=== PATIENT | male | born 1965 | race Caucasian/White ===

== ENCOUNTER 2017-01-27 18:18 | Emergency (ER) | payer BC ==
--- NOTE | 2017-01-27 18:57 | UC ---
Skin Complaint HPI - HPI Summary HPI Summary: 51 YEAR OLD MALE PRESENTS WITH COMPLAINS OF A SPLINTER IN HIS RIGHT LITTLE FINGER - History of Current Complaint Chief Complaint: UCForeignBody Time Seen by Provider: 01/27/17 18:56 Stated Complaint: SPLINTER EMBEDDED UNDER FINGER NAIL Hx Obtained From: Patient Onset/Duration: Sudden Onset Skin Exposure Onset/Duration: Hours Ago Timing: Constant Onset Severity: Moderate Current Severity: Moderate Pain Scale Used: 0-10 Numeric - 7 - Allergy/Home Medications Allergies/Adverse Reactions: Allergies Allergy/AdvReac Type Severity Reaction Status Date / Time Tetracycline Allergy ITCH Verified 01/27/17 18:54 Home Medications: Home Medications Omeprazole [Prilosec] 20 mg PO DAILY 01/27/17 [History Confirmed 01/27/17] Review of Systems Constitutional: Negative Skin: Bruising, Other - SPLINTER UNDER NAIL OF RIGHT 5TH LITTLE FINGER Eyes: Negative ENT: Negative Respiratory: Negative Cardiovascular: Negative Gastrointestinal: Negative Genitourinary: Negative Motor: Negative Neurovascular: Negative Musculoskeletal: Negative Neurological: Negative Psychological: Negative All Other Systems Reviewed And Are Negative: Yes PMH/Surg Hx/FS Hx/Imm Hx Previously Healthy: Yes - Surgical History Surgical History: None - Family History Known Family History: Positive: None - Social History Alcohol Use: Occasionally Substance Use Type: None Smoking Status (MU): Never Smoked Tobacco - Immunization History Most Recent Influenza Vaccination: fall 2016 Physical Exam Triage Information Reviewed: Yes Vital Signs: Initial Vital Signs Temp 36.8 C 01/27/17 18:50 Pulse 76 01/27/17 18:50 Resp 16 01/27/17 18:50 BP 130/68 01/27/17 18:50 Pulse Ox 98 01/27/17 18:50 Vital Signs Reviewed: Yes Eye Exam: Normal ENT Exam: Normal Dental Exam: Normal Neck exam: Normal Neck: Positive: 1 Respiratory Exam: Normal Cardiovascular Exam: Normal Abdominal Exam: Normal Musculoskeletal Exam: Normal Neurological Exam: Normal Psychological Exam: Normal Skin: Positive: Other - SPLINTER UNDER NAIL OF RIGHT 5TH FINGER Course/Dx - Diagnoses Provider Diagnoses: SPLINTER UNDER NAIL OF RIGHT 5TH FINGER Discharge - Discharge Plan Condition: Stable Disposition: HOME Prescriptions: Sulfamethox/Trimethoprim DS* [Bactrim DS 800/160 TAB*] 1 tab PO BID #14 tab Patient Education Materials: Splint Care (ED) Referrals: Eugene Allen MD [Medical Doctor] -
[2017-01-27] MEDS ORDERED: Lidocaine 1% MPF* 2 ML VIAL INJ ONE ×3 (18:59→19:49)
[2017-01-27] MEDS ORDERED: Acetaminophen TAB* 325 MG PO ONE (18:59)
--- NOTE | 2017-01-27 19:49 | RAD ---
INDICATION: Splinter to right small finger TECHNIQUE: 3 views of the right small finger were obtained. FINDINGS: The bones are normal alignment. Joint spaces appear maintained. No fracture is seen. No foreign body is visualized. IMPRESSION: NORMAL RIGHT SMALL FINGER RADIOGRAPH.
[2017-01-27] MEDS ORDERED: Lidocaine 1% MPF* 2 ML VIAL ONE (19:50)
[2017-01-27] MEDS ORDERED: Gelfoam 12-7 ADSORBABL SPONGE* 1 EA SPONGE ONE (20:04)
[2017-01-27] MEDS ORDERED: Sulfamethox/Trimethoprim DS 800/160* TAB PO ONE (20:11)
[2017-01-27] MEDS ORDERED: Tetan/Diph/Pertus SYR(Tdap)* 0.5 ML SYR(BOOSTRIX) use SYR IM ONE (20:17)
[2017-01-27] MEDS ORDERED: Gelfoam 12-7 ADSORBABL SPONGE* 1 EA SPONGE TOPICAL ONE (20:18)
[2017-01-27 20:38] VITALS: BP 116/74
== END 2017-01-27 20:28 | disposition home or self-care (01) ==
LOC: UCEAST 18:18
DX: S60.456A Superficial foreign body of right little finger, initial encounter (principal); X58.XXXA Exposure to other specified factors, initial encounter; Y92.9 Unspecified place or not applicable; Z88.3 Allergy status to other anti-infective agents
CPT/HCPCS: 11765; 73140; 90471; 90715; 99212; A9270-GY; G0463

== ENCOUNTER 2018-11-27 09:44 | Emergency (ER) | payer OTHER ==
[2018-11-27 10:42] VITALS: BP 119/70
[2018-11-27] MEDS ORDERED: Triamcinolone Acetonide* 40 MG/ML 1 ML VIAL IM ONE (11:03)
--- NOTE | 2018-11-27 11:12 | UC ---
Skin Complaint HPI - HPI Summary HPI Summary: 53 yo male with pruritic rash that started after weedeating a ditch spreading - History of Current Complaint Chief Complaint: UCRash Time Seen by Provider: 11/27/18 10:25 Stated Complaint: SKIN ISSUE Hx Obtained From: Patient Onset/Duration: Gradual Onset, Lasting Hours Timing: Constant Onset Severity: Mild Current Severity: Moderate Pain Intensity: 2 Pain Scale Used: 0-10 Numeric Location: Other - face/arms/legs Character: Pruritus, Raised Aggravating Factor(s): Nothing Alleviating Factor(s): Cold Compresses Associated Signs & Symptoms: Positive: Rash - Allergy/Home Medications Allergies/Adverse Reactions: Allergies Allergy/AdvReac Type Severity Reaction Status Date / Time tetracycline Allergy Itching Verified 11/27/18 10:42 PMH/Surg Hx/FS Hx/Imm Hx Previously Healthy: Yes - Surgical History Surgical History: None - Family History Known Family History: Positive: Hypertension, Non-Contributory - Social History Alcohol Use: Occasionally Substance Use Type: None Smoking Status (MU): Never Smoked Tobacco - Immunization History Most Recent Influenza Vaccination: fall 2016 Review of Systems All Other Systems Reviewed And Are Negative: Yes Constitutional: Positive: Negative Skin: Positive: Rash Eyes: Positive: Negative ENT: Positive: Negative Respiratory: Positive: Negative Cardiovascular: Positive: Negative Gastrointestinal: Positive: Negative Genitourinary: Positive: Negative Motor: Positive: Negative Neurovascular: Positive: Negative Musculoskeletal: Positive: Negative Neurological: Positive: Negative Psychological: Positive: Negative Physical Exam Triage Information Reviewed: Yes Appearance: Well-Appearing, No Pain Distress, Well-Nourished Vital Signs: Initial Vital Signs Temp 98 F 11/27/18 10:34 Pulse 70 11/27/18 10:34 Resp 17 11/27/18 10:34 BP 119/70 11/27/18 10:34 Pulse Ox 100 11/27/18 10:34 Vital Signs Reviewed: Yes Eyes: Positive: Conjunctiva Clear ENT: Positive: Hearing grossly normal. Negative: Nasal congestion, Nasal drainage, Trismus, Muffled voice, Hoarse voice Neck: Positive: Supple, Nontender, No Lymphadenopathy Respiratory: Positive: Lungs clear, Normal breath sounds, No respiratory distress Cardiovascular: Positive: RRR, No Murmur Musculoskeletal: Positive: ROM Intact, No Edema Neurological: Positive: Alert Psychological Exam: Normal Skin Exam: Other - extensive rash face/ears arms/legs c/w contact dermatitis Course/Dx - Diagnoses Provider Diagnosis: Contact dermatitis Discharge - Sign-Out/Discharge Documenting (check all that apply): Patient Departure All imaging exams completed and their final reports reviewed: No Studies - Discharge Plan Condition: Stable Disposition: HOME Patient Education Materials: Contact Dermatitis (ED) Referrals: Andrew Martin MD [Primary Care Provider] - 5 Days (no not improving) Additional Instructions: I suspect poison LAUREN you may take benadryl 25 mg 2 pills every 6 hours as needed for itching cool compresses with epsom salts - Billing Disposition and Condition Condition: STABLE Disposition: Home
== END 2018-11-27 11:32 | disposition home or self-care (01) ==
LOC: UCEAST 09:44
DX: L25.9 Unspecified contact dermatitis, unspecified cause (principal)
CPT/HCPCS: 96372; 99211; G0463; J3301

== ENCOUNTER 2019-06-03 09:42 | Emergency (ER) | payer BC, OTHER ==
--- OUTSIDE RECORDS SUMMARY | 2019-06-03 11:12 | XMS REPORT | Continuity of Care Document ---
:1965 External Reference #:[id number] Author Name Sanjana Jacobsen DO (transmitted by agent of provider Smith Martin) Address [address] [place] [id number] Problems Active Problems Provider Date Chronic kidney disease Onset: 03/10/2017 Insomnia Onset: 01/16/2014 Chronic sinusitis Onset: 03/21/2007 Inactive Problems Contact dermatitis due to plants, except food Onset: 12/02/2018 Inactive: 12/02/2018 Depressive disorder Onset: 11/14/2018 Inactive: 11/14/2018 Renal failure syndrome Onset: 11/14/2018 Inactive: 11/14/2018 Adult health examination Onset: 11/14/2018 Inactive: 11/14/2018 Body mass index 25-29 - overweight Onset: 11/14/2018 Inactive: 11/14/2018 Social History Type Date Description Comments Sex Unknown Allergies, Adverse Reactions, Alerts Active Allergies Reaction Severity Comments Date Tetracycline itchy hands Mild 12/30/2018 Medications Active Medications SIG Qnty Indications Ordering Provider Date Acidophilus Probiotic 1 tab by mouth Sanjana Jacobsen, 04/03/2019 Blend every day DO Capsules Omeprazole take 1 capsule 90caps Andrew Martin MD 07/11/2018 20mg by mouth once Capsules DR daily History Medications Clotrimazole/Betamethasone 1 apply to 30gm Z68.28 Amairani Sood 03/03/2019 - Dipropionate affected area [employer] CL[employer] 04/02/2019 1-0.05% Cream twice a day Fluoxetine HCL Oral; Take 3 270caps Unknown 12/20/2018 - 20mg Capsules Capsules By 04/02/2019 Mouth Every Day Fluoxetine HCL Oral; Take 3 270caps Unknown 12/20/2018 - 20mg Capsules Capsules By 03/27/2019 Mouth Every Day Prednisone Oral 20tabs Unknown 12/02/2018 - 20mg Tablets 04/02/2019 Fluoxetine HCL 1 daily 30tabs Unknown 11/14/2018 - 10mg Tablets Oral; Take 04/02/2019 10mg plus 20mg x 2 caps = 50mg a day Immunizations CPT Code Status Date Vaccine Lot # [id number] Given 03/03/2019 Flu < 65 years [id number] 94862 Given 04/21/2018 Prevnar 13 42078 Given 02/28/2018 Influenza Virus Vaccine, Quadrivalent, Split, Im Use 0.25ML 79564 Given 02/28/2018 Influenza Virus Vaccine, Quadrivalent, Split, Im Use 0.25ML 50753 Given 02/28/2018 Influenza Virus Vaccine, Quadrivalent, Split, Im Use 0.25ML 67317 Given 02/28/2018 Flu < 65 years 52557 Given 02/28/2018 Influenza Virus Vaccine, Quadrivalent, Split, Preservative Free 41722 Given 02/28/2018 Flumist 08034 Given 02/28/2018 Flu High Dose 90859 Given 02/28/2018 Influenza Virus Vaccine, Split, Preserv Free, Intradermal Use 24383 Given 01/23/2017 Tdap - Boostrix/Adacel 00345 Given 01/23/2017 Tdap - Boostrix/Adacel 67610 Given 01/23/2017 Tdap - Boostrix/Adacel 10665 Given 12/30/2016 Influenza Virus Vaccine, Split, Preserv Free, Intradermal Use 04677 Given 12/30/2016 Flu High Dose 99418 Given 12/30/2016 Flumist 67325 Given 12/30/2016 Influenza Virus Vaccine, Quadrivalent, Split, Preservative Free 00281 Given 12/30/2016 Flu < 65 years 88715 Given 12/30/2016 Influenza Virus Vaccine, Quadrivalent, Split Virus, Im Use 0.5ML 39717 Given 01/03/2016 Influenza Virus Vaccine, Quadrivalent, Split, Im Use 0.25ML 43023 Given 01/03/2016 Influenza Virus Vaccine, Quadrivalent, Split, Im Use 0.25ML 09444 Given 01/03/2016 Influenza Virus Vaccine, Quadrivalent, Split, Im Use 0.25ML 59096 Given 01/03/2016 Flu < 65 years 74325 Given 01/03/2016 Influenza Virus Vaccine, Quadrivalent, Split, Preservative Free 99194 Given 01/03/2016 Flumist 50391 Given 01/03/2016 Flu High Dose 59339 Given 02/27/2015 Flu High Dose 76968 Given 02/27/2015 Flumist 97136 Given 02/27/2015 Influenza Virus Vaccine, Quadrivalent, Split, Preservative Free 39258 Given 02/27/2015 Flu < 65 years 66292 Given 02/27/2015 Influenza Virus Vaccine, Quadrivalent, Split Virus, Im Use 0.5ML 04233 Given 01/16/2014 Influenza Virus Vaccine, Quadrivalent, Split Virus, Im Use 0.5ML 38433 Given 01/16/2014 Flu < 65 years 33998 Given 01/16/2014 Influenza Virus Vaccine, Quadrivalent, Split, Preservative Free 93358 Given 01/16/2014 Flumist 65634 Given 01/16/2014 Flu High Dose 90723 Given 02/01/2013 Flu High Dose 07145 Given 02/01/2013 Flumist 75323 Given 02/01/2013 Influenza Virus Vaccine, Quadrivalent, Split, Preservative Free 70503 Given 02/01/2013 Flu < 65 years 23377 Given 02/01/2013 Influenza Virus Vaccine, Quadrivalent, Split, Im Use 0.25ML 46625 Given 02/01/2013 Influenza Virus Vaccine, Quadrivalent, Split, Im Use 0.25ML 68286 Given 02/01/2013 Influenza Virus Vaccine, Quadrivalent, Split, Im Use 0.25ML 18202 Given 02/22/2012 Influenza Virus Vaccine Split Virus Intramuscular Use 0.5ML 37815 Given 02/22/2012 Flu High Dose 10246 Given 02/22/2012 Flumist 18755 Given 02/22/2012 Influenza Virus Vaccine, Quadrivalent, Split, Preservative Free 15497 Given 02/22/2012 Flu < 65 years 06714 Given 02/22/2012 Influenza Virus Vaccine, Quadrivalent, Split, Im Use 0.25ML 69151 Given 02/22/2012 Influenza Virus Vaccine, Quadrivalent, Split, Im Use 0.25ML 85920 Given 02/22/2012 Influenza Virus Vaccine, Quadrivalent, Split, Im Use 0.25ML 63477 Given 01/07/2011 Influenza Virus Vaccine, Quadrivalent, Split, Im Use 0.25ML 95139 Given 01/07/2011 Influenza Virus Vaccine, Quadrivalent, Split, Im Use 0.25ML 15348 Given 01/07/2011 Influenza Virus Vaccine Split Virus Intramuscular Use 0.5ML 15025 Given 01/28/2010 Influenza Virus Vaccine, Quadrivalent, Split, Im Use 0.25ML 26387 Given 01/28/2010 Influenza Virus Vaccine Split Virus Intramuscular Use 0.5ML Vital Signs Date Vital Result Comment 04/03/2019 4:05pm BP Systolic 108 mmHg BP Diastolic 68 mmHg Heart Rate 60 /min Body Temperature 97.5 F O2 % BldC Oximetry 99 % 03/03/2019 12:02pm BP Systolic 110 mmHg BP Diastolic 60 mmHg Height 73 inches 6'1" Weight 215.00 lb Heart Rate 59 /min Body Temperature 97.4 F O2 % BldC Oximetry 98 % BMI (Body Mass Index) 28.4 kg/m2 Results Test Acquired Date Facility Test Result H/L Range Note Comp Metabolic 04/04/2019 [facility] Sodium 140 mmol/L Normal 135-145 [address] [place] [address] [phone] Potassium 3.9 mmol/L Normal 3.5-5.0 Chloride 105 mmol/L Normal 101-111 Co2 Carbon Dioxide 31 mmol/L Normal 22-32 Anion Gap 4 mmol/L Normal 2-11 Glucose 102 mg/dL High 70-100 Blood Urea Nitrogen 11 mg/dL Normal 6-24 Creatinine 1.17 mg/dL Normal 0.67-1.17 BUN/Creatinine Ratio 9.4 Normal 8-20 Calcium 8.6 mg/dL Normal 8.6-10.3 Total Protein 6.6 g/dL Normal 6.4-8.9 Albumin 4.0 g/dL Normal 3.2-5.2 Globulin 2.6 g/dL Normal 2-4 Albumin/Globulin Ratio 1.5 Normal 1-3 Total Bilirubin 0.60 mg/dL Normal 0.2-1.0 Alkaline Phosphatase 72 U/L Normal 34-104 Alt 28 U/L Normal 7-52 Ast 18 U/L Normal 13-39 Egfr Non- 64.7 >60 Egfr 78.3 >60 1 CBC Auto 04/04/2019 [facility] White Blood 6.2 10^3/uL Normal 3.5-10.[address] Count [place], [place] [id number] [phone] Red Blood Count 5.28 10^6/uL Normal 4.18-5.48 Hemoglobin 15.0 g/dL Normal 14.0-18.0 Hematocrit 44 % Normal 42-52 Mean Corpuscular Volume 84 fL Normal 80-94 Mean Corpuscular Hemoglobin 29 pg Normal 27-31 Mean Corpuscular HGB Conc 34 g/dL Normal 31-36 Red Cell Distribution Width 14 % Normal 10-15 Platelet Count 155 10^3/uL Normal 150-450 Mean Platelet Volume 9.1 fL Normal 7.4-10.4 Abs Neutrophils 3.8 10^3/uL Normal 1.5-7.7 Abs Lymphocytes 1.4 10^3/uL Normal 1.0-4.8 Abs Monocytes 0.7 10^3/uL Normal 0-0.8 Abs Eosinophils 0.3 10^3/uL Normal 0-0.6 Abs Basophils 0.1 10^3/uL Normal 0-0.2 Abs Nucleated RBC 0.0 10^3/uL Granulocyte % 61.6 % Lymphocyte % 21.8 % Monocyte % 11.2 % Eosinophil % 4.4 % Basophil % 1.0 % Nucleated Red Blood Cells % 0.4 Laboratory 04/04/2019 [facility] TSH (Thyroid 0.70 Normal 0.34 -5.60 test finding [address] Stim Horm) mcIU/[place] [address] [phone] Free T4 (Free Thyroxine) 0.91 ng/dL Normal 0.61-1.12 [facility] 11/14/2018 N2N/CCD Import [facility] 11/14/18 HIV Test Offered 11/14/2018 N2N/CCD Import HIV Test Offered - not indicated Health Care Proxy 11/14/2018 N2N/CCD Import Health Care Proxy Disc, form at home Creat, Ur Random 11/14/2018 N2N/CCD Import Creat, Ur Random 300 _ Microalb/CR Ratio 11/14/2018 N2N/CCD Import Microalb/CR Ratio <30 Microalbumin, Ur 11/14/2018 N2N/CCD Import Microalbumin, Ur 30 _ Microalbumin 11/14/2018 N2N/CCD Import Microalbumin Normal Interpretation Interpretation 1 Because ethnic data is not always readily available, this report includes an eGFR for both -Americans and non- Americans. The National Kidney Disease Education Program (NKDEP) does not endorse the use of the MDRD equation for patients that are not between the ages of 18 and 70, are , have extremes of body size, muscle mass, or nutritional status, or are non- or non-. According to the National Kidney Foundation, irrespective of diagnosis, the stage of the disease is based on the level of kidney function: Stage Description GFR(mL/min/1.73 m(2)) 1 Kidney damage with normal or decreased GFR 90 2 Kidney damage with mild decrease in GFR 60-89 3 Moderate decrease in GFR 30-59 4 Severe decrease in GFR 15-29 5 Kidney failure <15 (or dialysis) Procedures Date Code Description Status 11/14/2018 88226 Brief Emotional/Behav Assessment W/ Scoring Doc Per Completed Standard Inst Medical Devices Description No Information Available Encounters Type Date Location Provider Dx Diagnosis Office Visit 04/03/2019 4:00p [facility] Main Sanjana Jacobsen, DO R53.83 Other fatigue R21 Rash and other nonspecific skin eruption R94.5 Abnormal results of liver function studies R94.6 Abnormal results of thyroid function studies Office Visit 03/03/2019 12:00p [facility] Main JYOTI Conde B35.4 Tinea corporis Z23 Encounter for immunization Z68.28 Body mass index (BMI) 28.0-28.9, adult Assessments Date Code Description Provider 04/03/2019 R53.83 Other fatigue Sanjana Jacobsen, DO 04/03/2019 R21 Rash and other nonspecific skin eruption Sanjana Jacobsen, DO 04/03/2019 R94.5 Abnormal results of liver function studies Sanjana Jacobsen , DO 04/03/2019 R94.6 Abnormal results of thyroid function studies Sanjana Jacobsen DO 03/03/2019 B35.4 Tinea corporis JYOTI Conde 03/03/2019 Z23 Encounter for immunization JYOTI Conde 03/03/2019 Z68.28 Body mass index (BMI) 28.0-28.9, adult JYOTI Conde Plan of Treatment 04/03/2019 - Sanjana Karnow, DOR53.83 Other fatigueComments:Due for labs to check his renal function anyway and has had now over one month of fatigue/ lethargyWill rule out underlying cause if possible by getting some basic lab workR21 Rash and other nonspecific skin eruptionComments:Looks inflammatory to me or fungalCould be an odd presentation of pityriasis Will discuss case with derm and get back to ptEither way, no concerning features to the rash bwrchC03.5 Abnormal results of liver function studiesComments:hx of elevated ALT - repeat beizinjM38.6 Abnormal results of thyroid function studiesComments: Last TSH was low, therefore ordered further testingAllNew Medication: Acidophilus Probiotic Blend - 1 tab by mouth every dayComments:will look into where can get water tested Functional Status Description No Information Available Mental Status Description No Information Available Referrals Description No Information Available
--- OUTSIDE RECORDS SUMMARY | 2019-06-03 11:12 | XMS REPORT | Continuity of Care Document ---
:1965 External Reference #:[id number] Author Name Andrew Martin MD Address [address] [place] [address] Problems Active Problems Provider Date Chronic kidney disease Onset: 03/10/2017 Insomnia Onset: 01/16/2014 Chronic sinusitis Onset: 03/21/2007 Inactive Problems Contact dermatitis due to plants, except food Onset: 12/02/2018 Inactive: 12/02/2018 Social History Type Date Description Comments Sex Unknown Tobacco Use Start: Unknown Patient has never smoked Smoking Status Reviewed: 05/23/19 Patient has never smoked Allergies, Adverse Reactions, Alerts Active Allergies Reaction Severity Comments Date Tetracycline itchy hands Mild 12/30/2018 Medications Active Medications SIG Qnty Indications Ordering Provider Date Acidophilus Probiotic 1 tab by mouth Sanjana Jacobsen, 04/03/2019 Blend every day DO Capsules Omeprazole take 1 capsule 90caps Andrew Martin MD 07/11/2018 20mg by mouth once Capsules DR daily History Medications Clotrimazole/Betamethasone 1 apply to 30gm Z68.28 Amairani Sood, 03/03/2019 - 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 1-0.05% Cream twice a day Fluoxetine HCL Oral; Take 3 270caps Unknown 12/20/2018 - 20mg Capsules Capsules By 04/02/2019 Mouth Every Day Fluoxetine HCL Oral; Take 3 270caps Unknown 12/20/2018 - 20mg Capsules Capsules By 03/27/2019 Mouth Every Day Prednisone Oral 20tabs Unknown 12/02/2018 - 20mg Tablets 04/02/2019 Immunizations CPT Code Status Date Vaccine Lot # [id number] Given 05/23/2019 Shingrix - Shingles vaccine, Herpes Zoster [id number] 13265 Given 03/03/2019 Flu < 65 years [id number] 38044 Given 04/21/2018 Prevnar 13 69937 Given 02/28/2018 Flu < 65 years 92550 Given 01/23/2017 Tdap - Boostrix/Adacel 70910 Given 12/30/2016 Flu < 65 years Vital Signs Date Vital Result Comment 05/23/2019 10:34am BP Systolic 110 mmHg BP Diastolic 74 mmHg Height 73 inches 6'1" Weight 220.00 lb with equipement in pockets Heart Rate 62 /min Body Temperature 98.2 F O2 % BldC Oximetry 99 % BMI (Body Mass Index) 29.0 kg/m2 04/03/2019 4:05pm BP Systolic 108 mmHg BP Diastolic 68 mmHg Heart Rate 60 /min Body Temperature 97.5 F O2 % BldC Oximetry 99 % Results Test Acquired Date Facility Test Result H/L Range Note Comp Metabolic 04/04/2019 [facility] Sodium 140 mmol/L Normal 135-[address] [place] [address] [phone] Potassium 3.9 mmol/L Normal 3.5-5.0 Chloride 105 [...] Egfr 78.3 >60 1 CBC Auto 04/04/2019 [facility] White Blood 6.2 10^3/uL Normal 3.5-10.[address] [place] [address] [phone] Red Blood Count 5.28 10^6/uL Normal 4.18-5.48 [...] Red Blood Cells % 0.4 Laboratory 04/04/2019 [facility] TSH (Thyroid 0.70 Normal 0.34 -5.60 test finding [address] Stim Horm) mcIU/[place] [address] [phone] Free T4 (Free Thyroxine) 0.91 ng/dL Normal 0.61-1.12 1 Because ethnic data is not always [...] 5 Kidney failure <15 (or dialysis) Procedures Description No Information Available Medical Devices Description No Information Available Encounters Type Date Location Provider Dx Diagnosis Office Visit 05/23/2019 [facility] Ganesh Martin MD F43.29 Adjustment disorder 10:30a with other symptoms Office Visit 04/03/2019 [facility] Sanjana Jacobsen, DO R53.83 Other fatigue 4:00p R21 Rash and other nonspecific skin eruption R94.5 Abnormal results of liver function studies R94.6 Abnormal results of thyroid function studies Office Visit 03/03/2019 12:00p [facility] JYOTI Ya B35.4 Tinea corporis Z23 Encounter for immunization Z68.28 Body mass index (BMI) 28.0-28.9, adult Assessments Date Code Description Provider 05/23/2019 F43.29 Adjustment disorder with other symptoms Andrew Martin MD 04/03/2019 R53.83 Other fatigue Sanjanaan Jacobsen, DO 04/03/2019 R21 Rash and other nonspecific skin eruption Sanjana Karli, DO 04/03/2019 R94.5 Abnormal results of liver function studies Sanjana Ann-Marie , DO 04/03/2019 R94.6 Abnormal results of thyroid function studies Sanjana Jacobsen, DO 03/03/2019 B35.4 Tinea corporis JYOTI Conde 03/03/2019 Z23 Encounter for immunization JYOTI Conde 03/03/2019 Z68.28 Body mass index (BMI) 28.0-28.9, adult JYOTI Conde Plan of Treatment Future Appointment(s):05/29/2019 2:45 pm - Andrew Martin MD at [facility]2019 - Andrew Martin MDF43.29 Adjustment disorder with other symptoms Functional Status Description No Information Available Mental Status Description No Information Available Referrals Description No Information Available
[2019-06-03 11:19] VITALS: BP 115/73
--- NOTE | 2019-06-03 11:33 | UC ---
Eye Complaint HPI - HPI Summary HPI Summary: 54 y/o male presents to the urgent care c/o left eye redness, yellowish crusting discharge and mild discomfort since 06/01/2019. Pt reports he has been w/ URI symptoms, nasal discharge yellowish for the past 4 days, but not fever or cough. He has been using OTC medication to alleviate symptoms. Pt denies fever, photophobia, blurred vision, eye pain, dizziness, SOB, chest pain, abdominal pain, N/V/D. - History of Current Complaint Chief Complaint: UCEye Stated Complaint: EYE COMPLAINT Time Seen by Provider: 06/03/19 11:28 Hx Obtained From: Patient Onset/Duration: Gradual Onset, Lasting Days - 2 days, Still Present, Worse Since - today w/ yellowish discharge Timing: Constant Severity Initially: Mild Severity Currently: Moderate Pain Intensity: 1 - eye discomfort Pain Scale Used: 0-10 Numeric Location of Injury: Conjunctiva - left eye redness Character: Foreign Body Sensation Aggravating Factor(s): Blinking Alleviating Factor(s): Nothing Associated Signs And Symptoms: Positive: Drainage (Purulent) - yellowish and crusting left eye. Negative: Photophobia, Fever, Swelling - Risk Factors Penetrating Injury Risk Factor: Negative Globe Rupture Risk Factors: Negative Acute Glaucoma Risk Factors: Negative Optic Artery Occlusion Risk Factors: Negative - Allergies/Home Medications Allergies/Adverse Reactions: Allergies Allergy/AdvReac Type Severity Reaction Status Date / Time tetracycline Allergy Itching Verified 06/03/19 11:19 PMH/Surg Hx/FS Hx/Imm Hx Previously Healthy: Yes GI/ History: Gastroesophageal Reflux - Surgical History Surgical History: None - Family History Known Family History: Positive: Hypertension, Non-Contributory - Social History Occupation: Employed Full-time Lives: With Family Alcohol Use: Rare Substance Use Type: None Smoking Status (MU): Never Smoked Tobacco - Immunization History Most Recent Influenza Vaccination: fall 2016 Review of Systems All Other Systems Reviewed And Are Negative: Yes Constitutional: Positive: Negative Skin: Positive: Negative Eyes: Positive: Drainage - yellowish and crusting this morning on left eye, Eye Redness - left eye. Negative: Blurred Vision, Diplopia, Photophobia ENT: Positive: Nasal Discharge - clear, Sinus Congestion Respiratory: Positive: Negative Cardiovascular: Positive: Negative Gastrointestinal: Positive: Negative Genitourinary: Positive: Negative Motor: Positive: Negative Neurovascular: Positive: Negative Musculoskeletal: Positive: Negative Neurological: Positive: Negative Psychological: Positive: Negative Is Patient Immunocompromised?: No Physical Exam - Summary Physical Exam Summary: Vital Signs Reviewed: Yes General: Well appearing, well nourished male in no apparent pain distress Eyes: Positive: Left Conjunctiva Inflamed - Visual acuity: WNL,Visual castillo: full to confrontation. PERRLA, EOMI intact w/out limitation or complaint of pain. eyelashes clear. tearing and yellowish drainage on left eye observed. No ciliary flush. No chemosis, No photophobia. Normal fundoscopic exam; no proptosis, exophthalmos, nystagmus. ENT: Positive: Normal ENT inspection, Hearing grossly normal, Pharynx normal, Nasal congestion, Nasal drainage - clear, TMs normal - B/L external ear canal clear , TM's WNL. Negative: Tonsillar swelling, Tonsillar exudate Neck: Positive: Supple, Nontender, No Lymphadenopathy Respiratory: Positive: Chest nontender, Lungs clear, Normal breath sounds, No respiratory distress Cardiovascular: Positive: RRR, No Murmur, Pulses Normal, Brisk Capillary Refill Abdomen Description: Positive: Nontender, No Organomegaly, Soft. Negative: CVA Tenderness (R), CVA Tenderness (L) Bowel Sounds: Positive: Present Musculoskeletal: Positive: Strength Intact, ROM Intact, No Edema Neurological Exam: Normal Psychological Exam: Normal Skin Exam: Normal Triage Information Reviewed: Yes Vital Signs: Initial Vital Signs Temp 98.6 F 06/03/19 11:14 Pulse 63 06/03/19 11:14 Resp 16 06/03/19 11:14 BP 115/73 06/03/19 11:14 Pulse Ox 100 06/03/19 11:14 Eye Complaint Course/Dx - Course Course Of Treatment: 54 y/o male presents to the urgent care c/o left eye redness, yellowish crusting discharge and mild discomfort since 06/01/2019. Pt reports he has been w/ URI symptoms, nasal discharge yellowish for the past 4 days, but not fever or cough. He has been using OTC medication to alleviate symptoms. Pt denies fever, photophobia, blurred vision, eye pain, dizziness, SOB, chest pain, abdominal pain, N/V/D. Hx obtained. Pt w/ left eye bacterial conjunctivitis and URI on examination. Pt Rx ciprofloxacin ophthalmic drops for bacterial conjunctivitis. Pt advised if symptoms do not improve, advised f/u with PCP or machine ii cutter Dr Thomason in 3 days for further evaluation and treatment. d/c instructions explained. PT understood and agreed w/ plan of care. - Differential Dx/Diagnosis Differential Diagnosis/HQI/PQRI: Conjunctivitis, Corneal Abrasion, Periorbital Cellulitis, Orbital Cellulitis, Uveitis Provider Diagnosis: Bacterial conjunctivitis of left eye Discharge ED - Sign-Out/Discharge Documenting (check all that apply): Patient Departure - D/c home All imaging exams completed and their final reports reviewed: No Studies - Discharge Plan Condition: Stable Disposition: HOME Prescriptions: Ciprofloxacin 0.3% OPTH.GOPAL* [Cipro 0.3% Opth*] 1 drop LEFT EYE Q2H #1 btl Patient Education Materials: Conjunctivitis (ED) Referrals: Andrew Martin MD [Primary Care Provider] - 3 Days Bebeto Thomason MD [Medical Doctor] - If Needed Additional Instructions: 1-Please apply ophthalmic drops as instructed and finish the full course of treatment to avoid recurrent infection. Please encourage hand washing to avoid spreading 2-If you do not improve or if symptoms worsen please f/u with machine ii cutter Dr Thomason in 3 days for further evaluation and treatment - Billing Disposition and Condition Condition: STABLE Disposition: Home
== END 2019-06-03 11:54 | disposition home or self-care (01) ==
LOC: UCEAST 09:42
DX: H10.89 Other conjunctivitis (principal); J34.89 Other specified disorders of nose and nasal sinuses; Z88.1 Allergy status to other antibiotic agents
CPT/HCPCS: 99212; G0463